=== PATIENT | female | born 1955 | race Caucasian/White ===

== ENCOUNTER 2017-03-22 08:18 | Outpatient (CLI) | payer OTHER ==
[2017-03-22 14:42] LABS: BASOPHILS % (AUTO) 0.7 %; EOSINOPHILS % (AUTO) 0.7 %; HCT - HEMATOCRIT 40.7 % (37.0-47.0); HGB - HEMOGLOBIN 13.6 g/dL (12.0-16.0); LYMPHOCYTES % (AUTO) 24.9 %; MEAN CORPUSCULAR HEMOGLOBIN 29.7 pg (27.0-31.0); MEAN CORPUSCULAR HGB CONC 33.4 g/dL (32.0-36.0); MEAN CORPUSCULAR VOLUME 88.9 fL (81.0-99.0); MEAN PLATELET VOLUME 8.6 fL (7.9-10.8); MONOCYTES # (AUTO) 0.3 10^3/uL (0.0-1.0); MONOCYTES % (AUTO) 8.2 %; NEUTROPHILS # (AUTO) 2.7 10^3/uL (1.5-6.6); NEUTROPHILS % (AUTO) 65.5 %; RED BLOOD COUNT 4.58 10^6/uL (4.20-5.40); RED CELL DISTRIBUTION WIDTH 13.9 % (12.0-15.0); UNCORRECTED WHITE BLOOD COUNT 4.2 x10^3/uL; WHITE BLOOD COUNT 4.2 x10^3/uL (4.8-10.8)
[2017-03-22 14:57] LABS: ALBUMIN/GLOBULIN RATIO 1.4 (1.0-2.2); BILIRUBIN,TOTAL 0.6 mg/dL (0.2-1.0); BUN - BLOOD UREA NITROGEN 16 mg/dL (6-20); CALCIUM 8.9 mg/dL (8.5-10.3); CARBON DIOXIDE - CO2 26 mmol/L (21-32); CHLORIDE 103 mmol/L (101-111); CHOL/HDL RATIO 3.4 (<4.4); CHOLESTEROL 196 mg/dL; CREATININE 0.9 mg/dL (0.4-1.0); GFR - MDRD 64 (>89); GLUCOSE 90 mg/dL (70-100); HDL CHOLESTEROL 58 mg/dL; LDL/HDL RATIO 2.1 (<4.4); POTASSIUM 3.9 mmol/L (3.5-5.0); SODIUM 135 mmol/L (135-145); TOTAL PROTEIN 6.9 g/dL (6.7-8.2); TRIGLYCERIDES 79 mg/dL; VLDL CHOLESTEROL 16 mg/dL
== END 2017-03-22 08:19 | disposition home or self-care (01) ==
LOC: LAB.R 08:18
PROVIDERS: ATTEND Physician Assistant Medical
DX: Z00.00 Encounter for general adult medical examination without abnormal findings (principal); E55.9 Vitamin D deficiency, unspecified; M81.0 Age-related osteoporosis without current pathological fracture; Z79.899 Other long term (current) drug therapy
CPT/HCPCS: 80053; 80061; 82306; 84443; 85025

== ENCOUNTER 2019-05-26 08:18 | Emergency (ER) | payer BC ==
--- NOTE | 2019-05-26 08:44 | ED Physician Documentation ---
PD HPI SYNCOPE - Stated complaint Stated Complaint: SYNCOPE/WEAKNESS - Chief complaint Chief Complaint: Neuro - History obtained from History obtained from: Patient, Family () - History of Present Illness Witnessed: Witnessed Timing - onset: How many days ago (had dizziness wheo getting up from bed 2 and 3 days ago, and then improved after up short time. Noted it when bending over some as well. Today, felt okay when got up, but then at work, when started looking down and up doing computer work and writing on pad, got feeling of vertigo with nausea. [place] unsteady with walking due to vertigo. She felt coordinated typing at computer and writing. No trouble speaking. No focal weakness.) Duration: Minutes (prior episodes for few minutes. Today having more consistent vertigo. Improves with holding head still; worse with head movement.) Preceding symptoms: Nausea / vomiting. No: Headache, Dyspnea, Abdominal pain, L ight headed, Generalized weakness Associated symptoms: No: Headache, Vision changes Contributing factors: Just stood up (and head movement). No: Recent med change, Decreased PO intake, Noxious stimulae Injury occurred: No: Head injury, Neck injury Similar symptoms before: Has not had sx before Recently seen: Not recently seen Review of Systems Constitutional: denies: Fever, Chills, Myalgias Ears: denies: Ear pain Nose: denies: Rhinorrhea / runny nose, Congestion Throat: denies: Sore throat Cardiac: denies: Chest pain / pressure, Palpitations Respiratory: denies: Dyspnea, Cough GI: reports: Nausea (with the vertigo) Musculoskeletal: denies: Neck pain, Back pain Neurologic: denies: Focal weakness, Numbness, Difficulty speaking, Altered mental status, Headache, Head injury PD PAST MEDICAL HISTORY - Past Medical History Cardiovascular: None Respiratory: None Neuro: None Endocrine/Autoimmune: None - Present Medications Home Medications: Ambulatory Orders Medication Instructions Recorded Confirmed Cetirizine [ZyrTEC] 10 mg PO DAILY #15 tablet 05/26/19 Meclizine HCl [Motion Sickness 25 mg PO Q6H PRN #25 tablet 05/26/19 Relief] Ondansetron Odt [Zofran] 4 mg TL Q6H PRN #15 tablet 05/26/19 dexAMETHasone [Decadron] 4 mg PO DAILY #5 tablet 05/26/19 - Allergies Allergies/Adverse Reactions: Allergies Allergy/AdvReac Type Severity Reaction Status Date / Time No Known Drug Allergies Allergy Verified 05/26/19 08:38 PD ED PE NORMAL - Vitals Vital signs reviewed: Yes - General General: Alert and oriented X 3, No acute distress, Well developed/nourished - HEENT HEENT: Atraumatic, PERRL, EOMI (with nystagmus to the right), Ears normal, Pharynx benign - Neck Neck: Supple, no meningeal sign, No adenopathy - Cardiac Cardiac: RRR, No murmur - Respiratory Respiratory: Clear bilaterally - Derm Derm: Normal color, Warm and dry - Extremities Extremities: No deformity, No tenderness to palpate, Normal ROM s pain, No edema, No calf tenderness / cord - Neuro Neuro: Alert and oriented X 3, fitter armament 2-12 intact, No motor deficit, No sensory deficit, Normal speech Results - Vitals Vitals: Vital Signs - 24 hr 05/26/19 05/26/19 08:35 11:30 Temperature 36.2 C L Heart Rate 74 79 Respiratory 17 18 Rate Blood Pressure 124/72 133/88 H O2 Saturation 100 100 Oxygen O2 Source Room air - Labs Labs: Laboratory Tests 05/26/19 05/26/19 05/26/19 08:52 08:52 08:52 WBC 4.2 L RBC 4.53 Hgb 13.7 Hct 40.4 MCV 89.2 MCH 30.2 MCHC 33.9 RDW 13.4 Plt Count 210 MPV 9.5 Neut # (Auto) 2.8 Lymph # (Auto) 0.9 L Armstrong # (Auto) 0.4 Eos # (Auto) 0.0 Baso # (Auto) 0.0 Absolute Nucleated RBC 0.00 Nucleated RBC % 0.0 Sodium 136 Potassium 3.3 L Chloride 100 L Carbon Dioxide 25 Anion Gap 11.0 BUN 14 Creatinine 0.9 Estimated GFR (MDRD) 64 L Glucose 124 H Calcium 9.3 Magnesium 2.4 Total Bilirubin 0.6 AST 19 ALT < 10 L Alkaline Phosphatase 44 Troponin I High Sens < 2.3 L B-Natriuretic Peptide Total Protein 7.2 Albumin 4.4 Globulin 2.8 Albumin/Globulin Ratio 1.6 Lipase 31 TSH 05/26/19 05/26/19 08:52 08:52 WBC RBC Hgb Hct MCV MCH MCHC RDW Plt Count MPV Neut # (Auto) Lymph # (Auto) Armstrong # (Auto) Eos # (Auto) Baso # (Auto) Absolute Nucleated RBC Nucleated RBC % Sodium Potassium Chloride Carbon Dioxide Anion Gap BUN Creatinine Estimated GFR (MDRD) Glucose Calcium Magnesium Total Bilirubin AST ALT Alkaline Phosphatase Troponin I High Sens B-Natriuretic Peptide 17 Total Protein Albumin Globulin Albumin/Globulin Ratio Lipase TSH 2.40 PD MEDICAL DECISION MAKING - ED course Complexity details: re-evaluated patient (improved with meds. ), considered differential (peripheral vertigo with dampening and worse with movement. Nausea. Normal neuro otherwise. ), d/w patient, d/w family (spouse) Departure - Departure Disposition: Home, Self Care Clinical Impression: Acute vertigo with vomiting and inability to stand Condition: Stable Record reviewed to determine appropriate education?: Yes Instructions: ED Vertigo Unspecified Follow-Up: Doni Vivar MD [Primary Care Provider] - Prescriptions: Cetirizine [ZyrTEC] 10 mg PO DAILY #15 tablet dexAMETHasone [Decadron] 4 mg PO DAILY #5 tablet Meclizine HCl [Motion Sickness Relief] 25 mg PO Q6H PRN #25 tablet PRN Reason: Vertigo Ondansetron Odt [Zofran] 4 mg TL Q6H PRN #15 tablet PRN Reason: Nausea / Vomiting Comments: Slow movements and try not to keep your head or bend over too quickly. This sounds like an inner ear problem causing the vertigo. I presume there is some inflammation or fluid buildup. It does not sound like infection at this point. Use cetirizine antihistamine daily for the next week or so. Decadron steroid anti-inflammatory daily for several more days. Use meclizine if needed for dizziness and ondansetron if needed for nausea. Recheck if not improved over the next 2 to 3 days to completely resolved. Medications were transmitted to [facility]. Discharge Date/Time: 05/26/19 11:31
[2019-05-26 09:00] LABS: BASOPHILS % (AUTO) 0.5 %; EOSINOPHILS % (AUTO) 0.5 %; HGB - HEMOGLOBIN 13.7 g/dL (12.0-16.0); LYMPHOCYTES # (AUTO) 0.9 10^3/uL (1.5-3.5); LYMPHOCYTES % (AUTO) 22.4 %; MEAN CORPUSCULAR HEMOGLOBIN 30.2 pg (27.0-31.0); MEAN CORPUSCULAR HGB CONC 33.9 g/dL (32.0-36.0); MEAN CORPUSCULAR VOLUME 89.2 fL (81.0-99.0); MEAN PLATELET VOLUME 9.5 fL (7.9-10.8); MONOCYTES # (AUTO) 0.4 10^3/uL (0.0-1.0); MONOCYTES % (AUTO) 9.4 %; NEUTROPHILS # (AUTO) 2.8 10^3/uL (1.5-6.6); PLT - PLATELET COUNT 210 10^3/uL (130-450); RED BLOOD COUNT 4.53 10^6/uL (4.20-5.40); RED CELL DISTRIBUTION WIDTH 13.4 % (12.0-15.0); WHITE BLOOD COUNT 4.2 x10^3/uL (4.8-10.8)
[2019-05-26 09:14] LABS: ALBUMIN 4.4 g/dL (3.2-5.5); ALBUMIN/GLOBULIN RATIO 1.6 (1.0-2.2); ALKALINE PHOSPHATASE 44 IU/L (42-121); ALT ALANINE AMINOTRANSFERASE < 10 IU/L (10-60); AST ASPARTATE AMINOTRANSFERASE 19 IU/L (10-42); BILIRUBIN,TOTAL 0.6 mg/dL (0.2-1.0); BUN - BLOOD UREA NITROGEN 14 mg/dL (6-20); CALCIUM 9.3 mg/dL (8.5-10.3); CARBON DIOXIDE - CO2 25 mmol/L (21-32); CHLORIDE 100 mmol/L (101-111); CREATININE 0.9 mg/dL (0.4-1.0); GFR - MDRD 64 (>89); GLUCOSE 124 mg/dL (70-100); LIPASE 31 U/L (22-51); MAGNESIUM 2.4 mg/dL (1.7-2.8); SODIUM 136 mmol/L (135-145); TOTAL PROTEIN 7.2 g/dL (6.7-8.2)
[2019-05-26] MEDS ORDERED: MECLIZINE 12.5 MG TABLET PO STA (09:39)
[2019-05-26] MEDS ORDERED: diazePAM 5 MG TABLET PO STA (09:39)
[2019-05-26] MEDS ORDERED: ONDANSETRON ODT 4 MG TABLET TL STA (09:39)
[2019-05-26] MEDS ORDERED: POTASSIUM CHLORIDE 20 MEQ TABLET PO STA (10:11)
[2019-05-26 11:30] VITALS: BP 133/88
== END 2019-05-26 11:31 | disposition home or self-care (01) ==
LOC: ED 08:18
DX: R42 Dizziness and giddiness (principal)
CPT/HCPCS: 36415; 83690; 83735; 83880; 84484; 93005; 99284; A9270; Q0162; 80053; 84443; 85025

== ENCOUNTER 2019-05-27 12:52 | Outpatient (CLI) | payer BC ==
[2019-05-27 13:46] VITALS: BP 140/90
--- NOTE | 2019-05-27 13:46 | SLEEP CARE CONSULTATION ---
Information from patient questionnaire entered by Molly Price. I have reviewed and concur with the information entered by Molly Price. This document represents the service I personally performed and the decisions made by me, Clarence Rasmussen MD, [facility]. History of Present Illness Reason for Visit: New patient Chief Complaint: reports: Unrefreshed sleep, Snoring, Frequent awakenings at night Duration of Symptoms: MANY YEARS Usual bedtime: [id number] Time it takes to fall asleep: 30-60 MINUTES Snores at night: Yes Observed to quit breathing while asleep: No Sleeps alone due to snoring: Yes (SOMETIMES) Number of times waking at night: 2-3 Reasons for waking at night: reports: Bathroom, Other (PLANNING NEXT DAY) Toss, Turn, or Twitch while sleeping: Yes Recalls having dreams: Yes (SOMETIMES, NOT A LOT) Usually gets out of bed at: [id number] Feels refreshed in the morning: No Morning headache: No Ever fallen asleep while driving: No Takes day naps: No Prior sleep studies: No Additional HPI information: I had the pleasure of seeing Ms. Downing today regarding the possibility of her having a sleep disorder. As you know, she is a 63 year old lady who complains of snore, frequent awakenings, and unrefreshed sleep for several years. The patient tells me that she normally goes to bed around 9 - 10 pm, and it takes her approximately 30 - 60 minutes to fall asleep. She falls asleep first around 8 pm while watching TV. She thinks she gets 6 7 hours of sleep a night throughout her life. She has been told that she snores loudly and irregularly at night. She has never been observed to stop breathing in her sleep. Her spouse can still sleep in the same bed. She can recall waking up on the average of 3 - 7 times during the night. Most of the time she wakes up because of no clear reasons. She has never awakened because of her own snoring, choking, and having to gasp for air. There is a lot of tossing and turning in her sleep. She had rare somniloquy (sleep talking) and somnambulism (sleep walking). Generally there is no recollection of dreams. In the morning she usually gets up out of the bed around 9 a.m. not feeling refreshed nor rested. She gets out of bed at 6 am. She usually does not have a morning headache. During the day she complains of feeling sleepy and fatigued. Her score on Sumner Sleepiness Scale is 9 out of 24. She has never fallen asleep while driving nor has had any accident due to sleepiness. She usually does not take naps during the day. Upon falling asleep during the day she denies having vivid dreams. She has never had sleep paralysis, experienced cataplexy or symptoms of restless leg syndrome. She reports having impaired concentration during the day. 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 Patient is and lives in [place]. Have you smoked in the past 12 months: No Alcohol use: Yes Alcohol amount and frequency: 1 DRINK/WEEK Caffeine use: Yes Caffeine amount and frequency: 1 CUP/AM Family History Family history of sleep disordered breathing: Yes Family Hx Sleep Apnea: Mother: Sleep apnea - Treated, Father: Sleep apnea - Treated, Sibling: Sleep apnea - Treated Review of Systems Neurological: reports: headaches Psychiatric: reports: Attention Deficit Hyperactivity, anxiety Ear/Nose/Throat: reports: wisdom teeth removed Musculoskeletal: reports: joint pain, neck pain, back pain, muscle pain or cramping (FOOT CRAMPING) Immunologic: reports: sneezing (RUNNY NOSE) Physical Exam Vital signs obtained and entered by: Dr. Rasmussen Blood Pressure: 140/90 Cuff size: long Heart Rate: 114 (she just had EKG done yesterday) O2 Saturation: 98 Height: 5 ft 3 in Weight (kg): 140 lb Body Mass Index: 24.7 BMI Classification: Healthy weight Neck circumference: 14 HEENT: No craniofacial malformation Nostrils: patent to airflow Turbinates: normal Septum: midline Mouth and throat: narrow oropharynx Soft palate: long Hard palate: normal Uvula: normal Uvula visualization: 25% Mallampati Class III Tongue: enlarged in size with teeth regan on lateral edges Tonsils: small Chin and jaw: normal size and position Neck: normal w/o lymphadenopathy or thyromegaly Heart: irregular rhythm Lungs: clear bilaterally Abdomen: soft Extremities: no edema or clubbing Neurologic: intact Impression and Plan IMPRESSION: 1. Obstructive Sleep Apnea-Hypopnea Syndrome, as suggested by history of loud snoring, frequent awakenings during the night, unrefreshed sleep, cognitive impairment, and daytime hypersomnolence. Narrow oropharynx is a common predisposing factor for obstructive sleep apnea-hypopnea syndrome. Pathophysiology of sleep-disordered breathing was discussed. I recommend proceeding to polysomnography to confirm the diagnosis and to assess severity. If she has significant sleep disordered breathing, a manual CPAP titration study will also be performed to find the optimal treatment pressure. I informed the patient of what the sleep studies involve and after some discussion, she agreed to proceed. 2. Insomnia, due to excessive time allowed for [id number] hours a night at the present (from 8 pm while watching TV to 6 am). Because she indicates that she gets 6 7 hours of sleep a night on the average throughout her life, I recommend limiting time allowed for sleeping to no more than 7 hours a night. The patient chose 9 pm 4 am. Plan: 1. Schedule polysomnography or home sleep apnea test (HSAT). 2. Avoid long distance driving or when feeling sleepy. 3. Avoid alcohol, sedative and muscle relaxant around bedtime. 4. Return for follow up after the study/test. I spent 100% of this 15 minute visit face to face with the patient with greater than 50% of this was spent time counseling the patient and coordination of care.
== END 2019-05-27 12:53 | disposition home or self-care (01) ==
LOC: SC 12:52
PROVIDERS: ATTEND Internal Medicine Pulmonary Disease
DX: G47.10 Hypersomnia, unspecified (principal); G47.8 Other sleep disorders; R41.89 Other symptoms and signs involving cognitive functions and awareness; R06.83 Snoring; G47.00 Insomnia, unspecified
CPT/HCPCS: 99203; 99212

== ENCOUNTER 2019-06-03 19:30 | Outpatient (CLI) | payer BC | END 2019-06-03 23:59 | disposition home or self-care (01) | LOC: SC 19:30 | PROVIDERS: ATTEND Internal Medicine Pulmonary Disease | DX: G47.33 Obstructive sleep apnea (adult) (pediatric) (principal) | CPT/HCPCS: 95806 ==

== ENCOUNTER 2019-07-21 07:10 | Outpatient (CLI) | payer BC ==
[2019-07-21 07:41] LABS: ALBUMIN 4.5 g/dL (3.2-5.5); ALBUMIN/GLOBULIN RATIO 1.6 (1.0-2.2); ALKALINE PHOSPHATASE 47 IU/L (42-121); ALT ALANINE AMINOTRANSFERASE < 10 IU/L (10-60); AST ASPARTATE AMINOTRANSFERASE 20 IU/L (10-42); BILIRUBIN,TOTAL 0.7 mg/dL (0.2-1.0); BUN - BLOOD UREA NITROGEN 19 mg/dL (6-20); CALCIUM 8.9 mg/dL (8.5-10.3); CARBON DIOXIDE - CO2 27 mmol/L (21-32); CHLORIDE 103 mmol/L (101-111); CHOL/HDL RATIO 3.1 (<4.4); CHOLESTEROL 217 mg/dL; CREATININE 0.9 mg/dL (0.4-1.0); GFR - MDRD 64 (>89); GLUCOSE 88 mg/dL (70-100); HDL CHOLESTEROL 69 mg/dL; LDL CHOLESTEROL,CALCULATED 137 mg/dL; SODIUM 139 mmol/L (135-145); TOTAL PROTEIN 7.4 g/dL (6.7-8.2); VLDL CHOLESTEROL 11 mg/dL
== END 2019-07-21 07:11 | disposition home or self-care (01) ==
LOC: LAB 07:10
PROVIDERS: ATTEND Nurse Practitioner
DX: Z85.3 Personal history of malignant neoplasm of breast (principal); E78.2 Mixed hyperlipidemia
CPT/HCPCS: 36415; 80053; 80061; 83721; 86304

== ENCOUNTER 2019-07-29 09:58 | Outpatient (CLI) | payer BC ==
[2019-07-29 11:09] VITALS: BP 122/60
--- NOTE | 2019-07-29 11:09 | SLEEP CARE CONSULTATION ---
Information from patient questionnaire entered by Molly Price. I have reviewed and concur with the information entered by Molly Price. This document represents the service I personally performed and the decisions made by me, Ashely Alejo, RN, MSN, [employer]. History of Present Illness Initial [place] Sleepiness Scale score: 9 Additional HPI information: KATY DOWNING returns for follow up of the recently performed home sleep study ( HST) and informed findings: I explained the pathophysiology behind obstructive sleep apnea. We then spent quite a bit of time discussing different treatment options. For mild obstructive sleep apnea, surgery and oral appliance are alternatives to nasal CPAP therapy but in moderate or severe cases, nasal CPAP is the most effective and reliable treatment. Because apnea is primarily in supine position, then positional management therapy could be effective. Methods discussed such as positioning with pillows, using a T-shirt with tennis balls in the back, and shown commercial products that have a pillow format on back to prevent supine sleep. I reviewed the impact of weight changes on sleep apnea and strongly recommended losing some weight. After some discussion, the patient opted to go with the oral appliance. [facility] non PAP treatment patient education reviewed and given to patient with list of accredited dentists and one non-accredited dentist in [facility] to call for a consult. She states that her dentist is also accredited though not on list. A prescription was given to start process. Patient advised to check insurance to see if oral appliance is covered. Some dentists do not take Medicare. I will have patient follow up in 3 months to check effectiveness of treatment. If reduction of symptoms and comfortable with treatment, a polysomnography will be ordered using the oral appliance to check efficacy of treatment. Patient counseled not drink alcohol less than 4 hours before bedtime as it can increase snoring and apnea. Patient was cautioned about risks of drowsy driving until sleepiness symptoms resolve. Patient denies drowsy driving. [facility] patient education on snoring and sleep apnea given and reviewed. Sleep Study - Polysomnography Polysomnography findings: Home sleep study results: SLEEP TIME AND EFFICIENCY: The sleep study recording began at 09:03:48 PM and ended at 04:58:47 AM. Total recording time was 475.0 minutes. The total sleep time was 413.2 minutes. The sleep efficiency was 87.0 percent. The patient spent 126.0 minutes supine, and spent 287.3 minutes non-supine. The patients own estimate of sleep time was 6.00 hours. RESPIRATORY DATA: The AHI in this report is indexed to sleep time based on actigraphy. The AASM defines this as FRANK. The AHI on this type 3 Home Sleep Study may understate the AHI determined on a type 1 or 2 study, since EEG is not monitored resulting in the inability to score non-desaturating hypopneas. Based on 4% Calculation: The AHI4% calculation of 14.1 per hour of recording time was based on a total of 91 scored apneas and 6 scored hypopneas with 4% desaturations. Supine AHI4%: 38.1 per hour. Non-supine AHI4%: 3.6 per hour. Oxygen Summary: Patient's baseline O2 saturation was 97.8 %. The patient spent 3.9 minutes at an oxygen saturation less than 90%, and 1.0 minutes less than 85%. The desaturation index was 4.2 events per hour sleep time. The lowest saturation was 76.2 %. SNORING: The percent of the study time spent snoring was 74.4 %. The Snoring Count was 7033 . The Snoring Index was Patient Name: Katy Downing Study Date: 06/03/2019 : 1955 Page 2 of 6 8242.2 . PULSE RATE REVIEW: The mean heart rate was 71 beats per minute. The rate ranged from a low of 53 to a high of 121 beats per minute. DIAGNOSIS CODE: Obstructive Sleep Apnea G47.33This patient has mild obstructive sleep apnea, occurring almost exclusively during supine sleep. Allergies and Home Medications Known drug allergies: No Home medication list reviewed: Yes Allergy and home medication list: Tamoxifen daily probiotic daily Review of Systems Review of systems same as previous: Yes Physical Exam Blood Pressure: 122/60 Cuff size: regular Heart Rate: 83 O2 Saturation: 98 Weight: 145 lb 6.4 oz Impression and Plan 1. Obstructive Sleep Apnea-Hypopnea Syndrome, mild, with lowest oxygen saturation of 76.2%. Possibly this is the cause of the patients symptoms of unrefreshed sleep, and fatigue. As mentioned above, the patient chose an oral appliance to treat their apnea. A 3 month follow up will be made to see if appliance has reduced symptoms. If so, another polysomnography will be ordered with use of the oral appliance to check efficacy in reducing apnea. Until patient is able to use the oral appliance, positional therapy is advised to avoid supine sleep with pillow positioning or one of the commercial products because apnea is more severe supine. * oral appliance * Attempt to lose some weight. * Avoid alcohol consumption near bedtime. * Avoid supine sleep until using oral appliance * The patient is again cautioned about driving until sleepiness completely resolves. * Return 3months to assess response to therapy. I spent 100% of this 35 minute visit face to face with the patient with greater than 50% of this was spent time counseling the patient and coordination of care.
== END 2019-07-29 09:59 | disposition home or self-care (01) ==
LOC: SC 09:58
PROVIDERS: ATTEND Nurse Practitioner Family
DX: G47.33 Obstructive sleep apnea (adult) (pediatric) (principal)
CPT/HCPCS: 99212; 99214

== ENCOUNTER 2019-12-17 16:41 | Outpatient (CLI) | payer BC, OTHER ==
--- NOTE | 2019-12-17 16:03 | SLEEP CARE CONSULTATION ---
Information from patient questionnaire entered by Molly Price. I have reviewed and concur with the information entered by Molly Price. This document represents the service I personally performed and the decisions made by me, Ashely Alejo, RN, MSN, [employer]. History of Present Illness Service Date and Time: 12/17/2019 1641 Previous diagnosis: Mild, Obstructive Sleep Apnea-Hypopnea Syndrome AHI: 14.1 Reason for follow up: three month (WITH ORAL APPLIANCE) Prior sleep studies: Yes HPI additional information: The oral appliance is slightly uncomfortable. It has been adjusted for comfort and is better fitting. The main discomfort now is a band is rubbing in her left cheek area. This is reported as mild discomfort but no skin abrasion She uses the oral appliance now nightly. She has tried sleeping without oral appliance but finds she sleeps better with it. She uses a watch to check her sleeping. She feels she sleeps an average of 6-7 hours a night. She feels she is more rested when she is able to shut down her brain. She uses a noise machine to reduce thoughts. Generally thoughts are about what needs to do in work. She has not gotten out of bed to write out concerns as feels it might wake her more. She also has difficulty sleeping when back pain. It does help to sleep if takes Advil for back pain. She tries not to take Advil nightly. It also it helps to reduce back pain if she exercises in the morning. Subjective Initial [place] Sleepiness Scale score: 9 Allergies and Home Medications Home medication list reviewed: No (tried magnesium supplement but slept worse a few nights ) Review of Systems Review of systems same as previous: Yes Physical Exam Height: 5 ft 3 in Impression and Plan 1. Obstructive Sleep Apnea-Hypopnea Syndrome, mild, with good treatment complia nce of nightly use of oral appliance stated. She feels she sleeps better with oral appliance than without it. It has been adjusted to comfort but still some mild discomfort of the cheek area from a band on the device. There is no abrasion noted. Thus she is advised to call her dentist office to see if there is anything she an do to make it more comfortable. She also reports intermittent insomnia from either back pain or from things on her mind mainly due to work. She has found that her chronic back pain is less if she does her exercises in the morning. Thus she is advised to complete daily. If continued back pain, then perhaps re-evaluation from her PCP is advisable and physical therapy. In addition, I discussed methods to wind down when things on her mind. It appears she has been falling asleep on the couch and then awakens to go to bed and unable to fall asleep easily. She has programs that are later than her usual bedtime for her early rise time of 4-5am. Thus she is advised to consider recording these programs to watch earlier. In addition, she is advised to go to bed earlier to prevent falling asleep on couch. She also interjected that she could wind down in bed and read instead of watching TV. I agreed stating that reading is often used as a means to relax before bedtime as long as content is relaxing for patient. If unable to fall asleep due to things on her mind, she is advised to leave bedroom and write out the list of to do's or concerns as a release and then read something relaxing until sleepy enough to return to bed. A 2 week sleep diary will also be completed. Patient's apnea severity and rationale for treatment to reduce apnea, improve sleep quality and reduce cardiovascular and cerebrovascular events was reviewed. A sleep study to check efficacy of oral appliance in reducing her AHI will be deferred until COVID -19 exposure risks are reduced. * Continue oral appliance. * Contact dentist re cheek discomfort. * Implement methods to reduce insomnia. * Complete 2 week diary * Schedule follow up in 1 month , or sooner if concerns arise Visit Type: Telehealth Phone (to minimize the risk of COVID -19 exposure, the patient agreed to telehealth phone visit and to bill her insurance) Location of Provider: Home Patient agrees and consents to this telehealth visit type: Yes Time Spent with Patient (minutes): 27 Provider Statement: I spent 100% of the Telehealth Phone Call with the patient with greater than 50% spent counseling the patient and coordination of care.
== END 2019-12-17 16:42 | disposition home or self-care (01) ==
LOC: SC 16:41
PROVIDERS: ATTEND Nurse Practitioner Family
DX: G47.33 Obstructive sleep apnea (adult) (pediatric) (principal)

== ENCOUNTER 2020-01-14 17:00 | Outpatient (CLI) | payer OTHER ==
--- NOTE | 2020-01-14 16:04 | SLEEP CARE CONSULTATION ---
Information from patient questionnaire entered by Molly Price. I have reviewed and concur with the information entered by Molly Price. This document represents the service I personally performed and the decisions made by me, Ashely Alejo, RN, MSN, CLINICAL SUPPORT NURSE. History of Present Illness Service Date and Time: 01/14/2020 1700 Previous diagnosis: Mild, Obstructive Sleep Apnea-Hypopnea Syndrome AHI: 14.1 (using oral appliance) Reason for follow up: one month (with sleep diaries) Type of Sleep Study: Home sleep study HPI additional information: I reviewed her last visit note and objectives for this visit. The oral appliance no longer has any discomfort. A sleep diary was completed to further evaluate her sleep concerns. She has had less back pain with more frequent back exercises 5 days a week. This has been easier to accomplish since working from home. She is still falling asleep on couch but less often - However, she is sleeping better overall and more rested that she feels is from less work stress. She is able to stay up to watch her favorite show now till 10 pm. She has maintained her wake time -5-5:30am. Bedtime ranges 9:30 to 10:30pm Time to get to sleep is at first was 6-8 minutes then progressed to 2-3 minutes per her watch actigraphy. Times awakened :2-5 times during the night - causes are bathroom 1-2 times others are; cats / when airplanes from [employer] [place] fly over. Average awakenings 1-3 . Most of the time she is not waking to things on her mind which was related to work. She is also more comfortable with oral applaince. Her usual sleep time is 7- 8 hours She is more refreshed and rested overall. Subjective Initial [place] Sleepiness Scale score: 9 Current [place] Sleepiness Scale score: 5 Physical Exam Height: 5 ft 3 in Weight: 140 lb Body Mass Index: 24.7 BMI Classification: Healthy weight Impression and Plan 1. Insomnia, that appears to be controlled with patient feeling refreshed when awakens and rested during day that she feels is related to reduced work stress and acclimation and comfort of oral appliance. Awakenings to cats could be reduced by keeping out of room, but states she feels is not necessary at this time. When she returns to work, she is advised to consider a counselor to assist with finding methods to reduce work stress. Dependent on insurance this may or may not need a referral from her PCP. 2. Mild apnea, wtih improved sleep and restfulness with use of nightly oral appliance( advanced mandibular device). Thus it is time to schedule a sleep s tudy to check effectiveness in also reducing her apnea and if further adjustment is indicated by her dentist. Since had a HST for diagnosis, I will order an HST for evaluation - dependent on insurance coverage. I will have staff contact to schedule. Plan 1. Continue oral appliance 2. Schedule HST to check effectivenes of oral appliance 3. Consider counselor for work stress 4. Follow up after HST completed to review results. Visit Type: Telehealth Video Video Type: [facility] Provider Statement: I spent 100% of the Telehealth Video Call with the patient with greater than 50% spent counseling the patient and coordination of care.
== END 2020-01-14 17:01 | disposition home or self-care (01) ==
LOC: SC 17:00
PROVIDERS: ATTEND Nurse Practitioner Family
DX: G47.00 Insomnia, unspecified (principal); G47.33 Obstructive sleep apnea (adult) (pediatric)

== ENCOUNTER 2020-06-02 15:20 | Outpatient (CLI) | payer OTHER ==
--- NOTE | 2020-06-02 16:39 | SLEEP CARE CONSULTATION ---
Information from patient questionnaire entered by Toyin Brunner. I have reviewed and concur with the information entered by Toyin Brunner. This document represents the service I personally performed and the decisions made by , Maria Guadalupe Caicedo ARNP. History of Present Illness Service Date and Time: 06/02/2020 1520 Previous diagnosis: Mild, Obstructive Sleep Apnea-Hypopnea Syndrome AHI: 14.1 (in 2019) Reason for follow up: first compliance Equipment type: CPAP Equipment obtained from: [employer] (getting supplies as needed/answering questions as needed) Mask style: Nasal Backup mask available: Yes (old mask) Last cushion change: 1 month Prior sleep studies: Yes Year and Where: 2018 - [facility] Type of Sleep Study: Home sleep study HPI additional information: TOBY LONGO was diagnosed to have mild, AHI 14.1, obstructive sleep apnea- hypopnea syndrome and returned today for CPAP therapy first compliance follow- up. Sleep Study - Results [facility]: Yes [facility] - Data Reviewed with Patient Average duration of nightly device use: 6.5 Compliance rate %: 90 Current pressure setting (cmH2O): 4-15 Average residual AHI: 5.3 Central apnea: 2.6 Obstructive apnea: 1.9 Subjective Patient concerns: reports: mask discomfort, air blowing in eyes, mask leak noise. denies: aerophagia, condensation in mask/hose, nasal congestion, dry mouth, nose, throat, epistaxis, other Observed to snore while using device: No Current pressure setting perceived as: comfortable On therapy, patient: reports: sleeping better, more rested overall, other (she is under stress with job starting again, racing thoughts keeping her awake). denies: awakening more refreshed, being more awake and alert during the day, drowsiness while driving Initial [place] Sleepiness Scale score: 9 (In 2019) Current [place] Sleepiness Scale score: 6 Allergies and Home Medications Drug allergies reviewed: Yes (NKDA) Home medication list reviewed: Yes (no changes) Review of Systems Review of systems same as previous: Yes (No changes) Physical Exam Heart Rate: 72 O2 Saturation: 98 Height: 5 ft 3 in Weight: 138 lb Body Mass Index: 24.4 BMI Classification: Healthy weight Impression and Plan 1. Obstructive Sleep Apnea-Hypopnea Syndrome, mild, with good treatment compliance and fair apnea control, but has elevated residual AHI. On CPAP therapy, there is improved sleep quality and feels more rested overall. She states that she cannot fully say she is having more energy because she just went back to work and she is under a lot of pressure with her responsibilities and a lot on her mind at night. Her residual AHI is only 5.3. I will adjust her pressure to 8-12 cm H2O because her average 95% mean pressure is at 10.5 with a high of 11.7. She has been having issues with mask fit with the nasal Wisp mask. She has a narrow nose and it will slip causing air blowing in her eyes and mask leak noises. She has to adjust it to one side of her nose for it to work better because she needs more air in the right nostril over the left for comfort. She is trying to wear but would like to try a nasal pillows mask as she thinks this would seal better to her nose and be more comfortable. I agreed that this may help with her mask issues and a mask refitting was ordered. She just received a shipment of supplies but has not opened any of the packages. I advised her to talk to [facility] about returning the masks and getting the other type of mask so she would not have to pay out of pocket for a new mask. Patient's apnea severity and rationale for treatment to reduce apnea, improve sleep quality and reduce cardiovascular and cerebrovascular events was reviewed. I also reviewed the benefit of consistent device use of CPAP for her anxiety and headaches. * Mask refitting to try nasal pillows * Change autoCPAP pressure to 8-12 cmH2O * Notify me if snoring with mask or feeling that the pressure is too much or too little * Call this office if any problems using CPAP * Return for follow up in 1-2 months, or sooner if concerns arise Visit Type: In Office Time Spent with Patient (minutes): 27 Provider Statement: I spent 100% of the Face to Face Visit with the patient with greater than 50% spent counseling the patient and coordination of care.
== END 2020-06-02 15:21 | disposition home or self-care (01) ==
LOC: SC 15:20
PROVIDERS: ATTEND Nurse Practitioner Family
DX: G47.33 Obstructive sleep apnea (adult) (pediatric) (principal)
CPT/HCPCS: 99212; 99213

== ENCOUNTER 2020-08-02 16:05 | Outpatient (CLI) | payer OTHER ==
--- NOTE | 2020-08-02 16:40 | SLEEP CARE CONSULTATION ---
Information from patient questionnaire entered by Aguila Huerta. I have reviewed and concur with the information entered by Aguila Huerta. This document represents the service I personally performed and the decisions made by me, Maria Guadalupe Caicedo ARNP. History of Present Illness Service Date and Time: 08/02/2020 1605 Previous diagnosis: Mild, Obstructive Sleep Apnea-Hypopnea Syndrome AHI: 14.1 Reason for follow up: other (2-month followup - pressure change) Equipment type: CPAP Equipment obtained from: [employer] (getting supplies as needed) Mask style: Nasal pillows Backup mask available: No (will keep old mask when replaced) Last cushion change: over a month Prior sleep studies: Yes Year and Where: 2018 [facility] Type of Sleep Study: Home sleep study HPI additional information: TOBY LONGO was diagnosed to have mild, AHI 14.1, obstructive sleep apnea- hypopnea syndrome and returned today for CPAP therapy and 2 month pressure change follow-up. Sleep Study - Results Type of Sleep Study: Home sleep study Prior sleep studies: Yes Year and Where: 2018 [facility] CPAP Compliance Data - Data Reviewed with Patient Average duration of nightly device use: 5 h 58 min Compliance rate %: 45 Current pressure setting (cmH2O): 8-12 Average residual AHI: 5.7 Central apnea: 4.4 Obstructive apnea: 0.8 Subjective Missed days of use due to: reports: other (headaches and work stress) Patient concerns: reports: mask discomfort (the nasal pillows mask is good but it may be a little too big), dry mouth, nose, throat (a little dry mouth), other (the mask piece is hard on her upper lip and she has to reposition hose to get it comfortable). denies: aerophagia, air blowing in eyes, mask leak noise, condensation in mask/hose, nasal congestion, epistaxis Observed to snore while using device: No Current pressure setting perceived as: too high (when getting back to bed after getting up to bathroom) On therapy, patient: reports: sleeping better, awakening more refreshed, being more awake and alert during the day, more rested overall. denies: drowsiness while driving Initial [place] Sleepiness Scale score: 9 (In 2019) Current [place] Sleepiness Scale score: 2 Allergies and Home Medications Drug allergies reviewed: Yes (NKDA) Home medication list reviewed: Yes (no changes) Review of Systems Review of systems same as previous: Yes (no changes) Physical Exam Heart Rate: 73 O2 Saturation: 99 Height: 5 ft 3 in Weight: 135 lb Body Mass Index: 23.9 BMI Classification: Healthy weight Impression and Plan 1. Obstructive Sleep Apnea-Hypopnea Syndrome, mild, with poor treatment compliance and fair apnea control with mild elevation of residual AHI. On CPAP therapy, the patient has better sleep quality and is more rested overall. Her download shows some elevated central apnea index on current pressure range. The patients pressure will be changed to autoCPAP 8-10 cmH20 For elevation of residual AHI. Patient advised to contact me if pressure change is uncomfortable so that it can be adjusted. Goals for apnea control discussed. Patient's apnea severity and rationale for treatment to reduce apnea, improve sleep quality and reduce cardiovascular and cerebrovascular events was reviewed. I also reviewed the benefit of consistent device use of CPAP for her anxiety and headaches. * Change autoCPAP pressure to 8-10 cmH2O * Try for mask refitting to try a [employer] nasal cushion mask with headgear * Notify me if snoring with mask or feeling that the pressure is too much or too little * Attempt to lose weight * Call this office if any problems using CPAP * Return for follow up in 1-2 months , or sooner if concerns arise Counseling Topics: Spare mask Visit Type: In Office Time Spent with Patient (minutes): 24 Provider Statement: I spent 100% of the Face to Face Visit with the patient with greater than 50% spent counseling the patient and coordination of care.
== END 2020-08-02 16:06 | disposition home or self-care (01) ==
LOC: SC 16:05
PROVIDERS: ATTEND Nurse Practitioner Family
DX: G47.33 Obstructive sleep apnea (adult) (pediatric) (principal)
CPT/HCPCS: 99212; 99213

== ENCOUNTER 2020-11-11 15:43 | Outpatient (CLI) | payer OTHER ==
--- NOTE | 2020-11-11 16:26 | SLEEP CARE CONSULTATION ---
Information from patient questionnaire entered by Aguila Huerta. I have reviewed and concur with the information entered by Aguila Huerta. This document represents the service I personally performed and the decisions made by , Maria Guadalupe Caicedo ARNP. History of Present Illness Service Date and Time: 11/11/2020 1543 Previous diagnosis: Mild, Obstructive Sleep Apnea-Hypopnea Syndrome AHI: 17.2 Reason for follow up: other (Failed compliance - discuss options) Equipment type: CPAP Equipment obtained from: [employer] (getting supplies as needed) Mask style: Nasal pillows Prior sleep studies: Yes Year and Where: 2018 and 2019 [facility] Type of Sleep Study: Home sleep study HPI additional information: TOBY LONGO was diagnosed to have mild, AHI 14.1, obstructive sleep apnea- hypopnea syndrome and returned today for [facility]AP [facility] CPAP Compliance Data Compliance data discussion: She has an oral appliance that she used to use when she was first diagnosed with mild obstructive sleep apnea. She has been unable to tolerate the CPAP therapy and has restarted using her oral appliance in the last week. Subjective Patient concerns: reports: mask discomfort (hose in front of face causing discomfort), mask leak noise On therapy, patient: denies: sleeping better, awakening more refreshed, being more awake and alert during the day, more rested overall Initial [place] Sleepiness Scale score: 9 (In 2019) Current [place] Sleepiness Scale score: 4 Allergies and Home Medications Drug allergies reviewed: Yes (nausea/vomiting with anesthesia for surgery) Home medication list reviewed: Yes (no changes) Review of Systems Review of systems same as previous: Yes (no changes) Physical Exam Heart Rate: 80 O2 Saturation: 98 Height: 5 ft 3 in Weight: 136 lb Body Mass Index: 24.0 BMI Classification: Healthy weight Impression and Plan 1. Obstructive Sleep Apnea-Hypopnea Syndrome, mild, who is not tolerating the CPAP therapy. She has since restarted oral appliance in the last week and would like to continue with this treatment. She was seen after her HST with oral appliance and found to not have good apnea control with an average AHI of 8.0. She was setup on CPAP therapy but cannot tolerate it and has failed compliance. I reviewed her original sleep study and she had a non-supine AHI of 3.6. I discussed with patient that since her apnea is primarily in supine position, patient advised she could also use positional therapy in conjunction with the oral appliance to obtain good control of her apnea and she agreed with this plan. Follow up is scheduled for one month after her follow up with dentist check of her oral appliance in December 2020 to check effectiveness and to see if further evaluation is indicated, such as a repeat study. She voiced understanding and agreed to proceed. I will write to discontinue CPAP therapy and she will return her device to [facility]. Patient's apnea severity and rationale for treatment to reduce apnea, improve sleep quality and reduce cardiovascular and cerebrovascular events was reviewed. * Discontinue CPAP therapy * Continue oral appliance therapy * Start positional therapy in conjunction with oral appliance * Follow up with dentist to have her oral appliance checked for fit in December as scheduled and adjusted as needed * Return for follow up in 1-2 months, or sooner if concerns arise Visit Type: In Office Time Spent with Patient (minutes): 28 Provider Statement: I spent 100% of the Face to Face Visit with the patient with greater than 50% spent counseling the patient and coordination of care.
== END 2020-11-11 15:44 | disposition home or self-care (01) ==
LOC: SC 15:43
PROVIDERS: ATTEND Nurse Practitioner Family
DX: G47.33 Obstructive sleep apnea (adult) (pediatric) (principal)
CPT/HCPCS: 99212

== ENCOUNTER 2021-01-19 08:00 | Outpatient (CLI) | payer OTHER ==
[2021-01-19 12:06] LABS: CHOLESTEROL 204 mg/dL; HDL CHOLESTEROL 67 mg/dL; LDL CHOLESTEROL,CALCULATED 127 mg/dL; LDL/HDL RATIO 1.9 (<4.4); TRIGLYCERIDES 51 mg/dL; VLDL CHOLESTEROL 10 mg/dL
== END 2021-01-19 23:59 | disposition home or self-care (01) ==
LOC: LAB.WCP 08:00
PROVIDERS: ATTEND Family Medicine
DX: E78.2 Mixed hyperlipidemia (principal)
CPT/HCPCS: 36415; 80061; 83721

== ENCOUNTER 2021-01-21 14:21 | Outpatient (CLI) | payer OTHER ==
--- NOTE | 2021-01-21 14:45 | SLEEP CARE CONSULTATION ---
Information from patient questionnaire entered by Toyin Brunner. I have reviewed and concur with the information entered by Toyin Brunner. This document represents the service I personally performed and the decisions made by , Maria Guadalupe Caicedo ARNP. History of Present Illness Service Date and Time: 01/21/2021 1421 Previous diagnosis: Mild, Obstructive Sleep Apnea-Hypopnea Syndrome AHI: 8.0 (in 2019)(14.1 in 2019) Reason for follow up: other (2 month, positional) Equipment type: CPAP Equipment obtained from: [employer] (getting supplies as needed) Mask style: Nasal pillows Prior sleep [facility]: Yes [facility] and [facility] Type of Sleep Study: Home sleep study HPI additional information: TOBY LONGO was diagnosed to have mild, AHI 8.0, obstructive sleep apnea- hypopnea syndrome and returned today for oral appliance therapy two month follow-up. CPAP Compliance Data Compliance data discussion: She is using the oral appliance nightly. She has missed a night or two overall. Subjective On therapy, patient: reports: sleeping better, awakening more refreshed, being more awake and alert during the day, more rested overall. denies: drowsiness while driving Initial [place] Sleepiness Scale score: 9 (In 2019) Current [place] Sleepiness Scale score: 4 Allergies and Home Medications Home medication list reviewed: Yes (no changes) Review of Systems Review of systems same as previous: Yes (no changes) Physical Exam Heart Rate: 76 O2 Saturation: 96 Height: 5 ft 3 in Weight: 138 lb Body Mass Index: 24.4 BMI Classification: Healthy weight Impression and Plan 1. Obstructive Sleep Apnea-Hypopnea Syndrome, mild. On oral appliance therapy, the patient has better sleep quality and is more rested overall. She has tried to sleep on her side as well. She feels the oral device is helping her to feel more rested. Her [place] score is 4/24, down from initial 9/24. She has been re- evaluated by her Dentist who adjusted the device because she was getting some rubbing of metal pieces in her mouth causing soreness. The device has been more comfortable since these adjustments. She would like to continue with this oral appliance with positional therapy to control her sleep apnea. Patient's apnea severity and rationale for treatment to reduce apnea, improve sleep quality and reduce cardiovascular and cerebrovascular events was reviewed. * Continue oral appliance therapy * Avoid sleeping supine * Maintain a healthy weight * Return for follow up in 6 months, or sooner if concerns arise Counseling Topics: Sleeping position, Weight control Visit Type: In Office Time Spent with Patient (minutes): 13 Provider Statement: I spent 100% of the Face to Face Visit with the patient with greater than 50% spent counseling the patient and coordination of care.
== END 2021-01-21 14:22 | disposition home or self-care (01) ==
LOC: SC 14:21
PROVIDERS: ATTEND Nurse Practitioner Family
DX: G47.33 Obstructive sleep apnea (adult) (pediatric) (principal)
CPT/HCPCS: 99212

== ENCOUNTER 2021-11-18 07:44 | Outpatient (CLI) | payer OTHER | END 2021-11-18 07:45 | disposition home or self-care (01) | LOC: LAB 07:44 | PROVIDERS: ATTEND Physician Assistant | DX: R19.7 Diarrhea, unspecified (principal) | CPT/HCPCS: 81599; 87045; 87177; 87209; 87427; 87449; 87493 ==

== ENCOUNTER 2023-10-11 06:58 | Outpatient (CLI) | payer OTHER ==
[2023-10-11 07:09] LABS: BASOPHILS % (AUTO) 0.8 %; EOSINOPHILS # (AUTO) 0.1 10^3/uL (0.0-0.7); EOSINOPHILS % (AUTO) 1.3 %; HCT - HEMATOCRIT 41.7 % (37.0-47.0); HGB - HEMOGLOBIN 13.5 g/dL (12.0-16.0); LYMPHOCYTES % (AUTO) 25.1 %; MEAN CORPUSCULAR HEMOGLOBIN 29.3 pg (27.0-31.0); MEAN CORPUSCULAR HGB CONC 32.4 g/dL (32.0-36.0); MEAN CORPUSCULAR VOLUME 90.5 fL (81.0-99.0); MONOCYTES # (AUTO) 0.3 10^3/uL (0.0-1.0); MONOCYTES % (AUTO) 8.5 %; NEUTROPHILS # (AUTO) 2.6 10^3/uL (1.5-6.6); NEUTROPHILS % (AUTO) 64.3 %; PLT - PLATELET COUNT 229 10^3/uL (130-450); RED BLOOD COUNT 4.61 10^6/uL (4.20-5.40); RED CELL DISTRIBUTION WIDTH 14.1 % (12.0-15.0)
[2023-10-11 07:36] LABS: ALBUMIN 4.2 g/dL (3.2-5.5); ALBUMIN/GLOBULIN RATIO 1.7 (1.0-2.2); ALKALINE PHOSPHATASE 79 IU/L (42-121); ALT ALANINE AMINOTRANSFERASE 8 IU/L (10-60); AST ASPARTATE AMINOTRANSFERASE 17 IU/L (10-42); BILIRUBIN,TOTAL 0.5 mg/dL (0.2-1.0); BUN - BLOOD UREA NITROGEN 12 mg/dL (6-20); CALCIUM 9.4 mg/dL (8.5-10.3); CARBON DIOXIDE - CO2 30 mmol/L (21-32); CHLORIDE 104 mmol/L (101-111); CHOL/HDL RATIO 3.5 (<4.4); CHOLESTEROL 255 mg/dL; CREATININE 0.9 mg/dL (0.6-1.3); GFR - MDRD 63 (>89); GLUCOSE 91 mg/dL (74-104); HDL CHOLESTEROL 72 mg/dL; LDL CHOLESTEROL,CALCULATED 171 mg/dL; LDL/HDL RATIO 2.4 (<4.4); POTASSIUM 3.8 mmol/L (3.5-4.5); SODIUM 139 mmol/L (135-145); TOTAL PROTEIN 6.7 g/dL (6.4-8.9); TRIGLYCERIDES 62 mg/dL (48-352); VLDL CHOLESTEROL 12 mg/dL
[2023-10-11 07:43] LABS: THYROID STIMULATING HORMONE 2.21 uIU/mL (0.34-5.60)
[2023-10-11 11:12] LABS: ESTIMATED AVERAGE GLUCOSE 105 mg/dL (70-100); HEMOGLOBIN A1c% 5.3 % (4.27-6.07)
== END 2023-10-11 06:59 | disposition home or self-care (01) ==
LOC: LAB 06:58
PROVIDERS: ATTEND Registered Nurse
DX: R07.89 Other chest pain (principal); Z13.9 Encounter for screening, unspecified
CPT/HCPCS: 36415; 80053; 80061; 83036; 83721; 84443; 85025

== ENCOUNTER 2024-01-09 08:00 | Outpatient (CLI) | payer OTHER | END 2024-01-09 23:59 | disposition home or self-care (01) | LOC: LAB.N 08:00 | PROVIDERS: ATTEND Registered Nurse | DX: R19.7 Diarrhea, unspecified (principal) | CPT/HCPCS: 87045; 87046; 87427 ==